=== PATIENT | female | born 1970 | race Caucasian/White ===

== ENCOUNTER 2016-10-25 17:34 | Emergency (ER) | payer OTHER ==
[~2016-10-25] VITALS: Ht 152.4 cm; Wt 68.0 kg
[~2016-10-25 17:34] MED LIST: CITA10TA4 PO; FERR325T58 PO; TRAM50TA PO
[2016-10-25 20:35] VITALS: BP 145/93
[2016-10-25 21:00] LABS: BILIRUBIN,URINE NEGATIVE (NEG); GLUCOSE,URINE NEGATIVE (NEG); NITRITE,URINE NEGATIVE (NEG); PROTEIN,URINE NEGATIVE (NEG-TRACE); UROBILINOGEN,URINE 0.2 mg/dL (0.2 mg/dL)
[2016-10-25 21:14] LABS: BACTERIA,URINE 0 /HPF (0-FEW); RBC,URINE OCC /HPF (0-2); SQUAMOUS EPITHELIAL CELL,UR OCC /LPF; WBC,URINE OCC /HPF (0-4)
--- NOTE | 2016-10-25 21:21 | PHYS DOC ---
Past Medical History Past Medical History: Anxiety, Hypertension, Sinusitis Additional Past Medical Histor: RLS Past Surgical History: Hysterectomy, Tubal ligation, Other Additional Past Surgical Histo: RIGHT ORTHOSCOPIC KNEE, HTN W , R bunionectomy Alcohol Use: Rarely Drug Use: None Adult General Chief Complaint Chief Complaint: SYNCOPE HPI HPI Patient is a 46 year old female who presents with complaint of syncopal episode. 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 The patient states that this is the second episode that she has had in the last month. Patient states that she has also been dealing with lower abdominal pain which has been present for the past month. Patient has had associated nausea and increasing fatigue. Patient denies any fever or bloody stools. Patient did not have any associated chest pain or shortness of breath with her syncopal episode. Patient states that she feels rundown and does not feel like herself. Patient states that she does get lightheaded when she changes positions too quickly. Patient states that her lower abdominal pain as 8 out of 10. Patient describes it as sharp. Review of Systems Review of Systems Constitutional: Fatigue, Denies fever or chills [] Eyes: Denies change in visual acuity, redness, or eye pain [] HENT: Denies nasal congestion or sore throat [] Respiratory: Denies cough or shortness of breath [] Cardiovascular: Syncope, denies chest pain or edema [] GI: Abdominal pain, nausea, denies vomiting, bloody stools or diarrhea [] : Denies dysuria or hematuria [] Musculoskeletal: Denies back pain or joint pain [] Integument: Denies rash or skin lesions [] Neurologic: Denies headache, focal weakness or sensory changes [] Current Medications Current Medications Current Medications Medications (Trade) Dose Ordered Sig/Spencer Start Time Stop Time Status Last Admin Dose Admin Acetaminophen/ Hydrocodone Bitart 1 tab 1 tab 1X ONCE 10/25/16 23:00 10/25/16 23:01 DC 10/25/16 23:03 1 TAB Info (Do NOT chart on this entry -- for MONITORING) 1 each PRN DAILY PRN 10/25/16 22:00 10/27/16 21:59 Iohexol (Omnipaque 300 Mg/ml) 75 ml 1X ONCE 10/25/16 22:00 10/25/16 22:01 DC 10/25/16 22:19 75 ML Sodium Chloride (Iv Sodium Chloride 0.9% 500ml Bag) 500 ml @ 500 mls/hr 1X ONCE 10/25/16 23:00 10/25/16 23:59 10/25/16 23:03 500 MLS/HR Allergies Allergies Allergies Coded Allergies Type Severity Reaction Last Updated Verified gabapentin Adverse Reaction Intermediate Swelling 05/02/15 Yes Physical Exam Physical Exam Constitutional: Alert, afebrile, no acute distress. [] HENT: Normocephalic, atraumatic, bilateral external ears normal, oropharynx moist, no oral exudates, nose normal. [] Eyes: PERRLA, EOMI, conjunctiva normal, no discharge. [] Neck: Normal range of motion, no tenderness, supple, no stridor. [] Cardiovascular: Tachycardia, regular rhythm no murmur [] Lungs & Thorax: Bilateral breath sounds clear to auscultation [] Abdomen: Bowel sounds normal, soft, suprapubic and bilateral lower abdominal tenderness to palpation, no masses, no pulsatile masses. [] Skin: Warm, dry, no erythema, no rash. [] Back: No tenderness, no CVA tenderness. [] Extremities: No tenderness, no cyanosis, no clubbing, ROM intact, no edema. [] Neurologic: Alert and oriented X 3, normal motor function, normal sensory function, no focal deficits noted. [] Current Patient Data Vital Signs Vital Signs Date Time Temp Pulse Resp B/P Pulse Ox O2 Delivery O2 Flow Rate FiO2 10/25/16 23:03 Room Air 10/25/16 20:35 98.2 96 16 145/93 98 98.2 Lab Values Laboratory Tests Test 10/25/16 20:30 10/25/16 21:21 Urine Color Yellow Urine Clarity Clear Urine pH 6.0 Urine Specific [place] 1.025 Urine Protein Negativemg/dL (NEG-TRACE) Urine Glucose (UA) Negativemg/dL (NEG) Urine Ketones (Stick) Negativemg/dL (NEG) Urine Blood Negative (NEG) Urine Nitrite Negative (NEG) Urine Bilirubin Negative (NEG) Urine Urobilinogen Dipstick 0.2mg/dL (0.2 mg/dL) Urine Leukocyte Esterase Negative (NEG) Urine RBC Occ/HPF (0-2) Urine WBC Occ/HPF (0-4) Urine Squamous Epithelial Cells Occ/LPF Urine Bacteria 0/HPF (0-FEW) Urine Mucus Slight/LPF White Blood Count 5.4x10^3/uL (4.0-11.0) Red Blood Count 4.39x10^6/uL (3.50-5.40) Hemoglobin 13.2g/dL (12.0-15.5) Hematocrit 38.7% (36.0-47.0) Mean Corpuscular Volume 88fL (79-100) Mean Corpuscular Hemoglobin 30pg (25-35) Mean Corpuscular Hemoglobin Concent 34g/dL (31-37) Red Cell Distribution Width 13.0% (11.5-14.5) Platelet Count 238x10^3/uL (140-400) Neutrophils (%) (Auto) 57% (31-73) Lymphocytes (%) (Auto) 31% (24-48) Monocytes (%) (Auto) 9% (0-9) Eosinophils (%) (Auto) 2% (0-3) Basophils (%) (Auto) 1% (0-3) Neutrophils # (Auto) 3.1x10^3uL (1.8-7.7) Lymphocytes # (Auto) 1.7x10^3/uL (1.0-4.8) Monocytes # (Auto) 0.5x10^3/uL (0.0-1.1) Eosinophils # (Auto) 0.1x10^3/uL (0.0-0.7) Basophils # (Auto) 0.0x10^3/uL (0.0-0.2) Sodium Level 140mmol/L (136-145) Potassium Level 3.6mmol/L (3.5-5.1) Chloride Level 104mmol/L (98-107) Carbon Dioxide Level 27mmol/L (21-32) Anion Gap 9 (6-14) Blood Urea Nitrogen 15mg/dL (7-20) Creatinine 0.7mg/dL (0.6-1.0) Estimated GFR (Cockcroft-Gault) 90.5 BUN/Creatinine Ratio 21 (6-20) H Glucose Level 133mg/dL (70-99) H Calcium Level 9.1mg/dL (8.5-10.1) Total Bilirubin 0.2mg/dL (0.2-1.0) Aspartate Amino Transferase (AST) 16U/L (15-37) Alanine Aminotransferase (ALT) 29U/L (14-59) Alkaline Phosphatase 127U/L (46-116) H Troponin I Quantitative < 0.017ng/mL (0.000-0.055) Total Protein 7.3g/dL (6.4-8.2) Albumin 3.6g/dL (3.4-5.0) Albumin/Globulin Ratio 1.0 (1.0-1.7) Laboratory Tests 10/25/16 21:21 Laboratory Tests 10/25/16 21:21 EKG EKG Interpreted by me: Heart rate 90, sinus rhythm, normal intervals, normal axis, no acute ST/T-wave abnormalities present [] Radiology/Procedures Radiology/Procedures One view AP chest x-ray interpreted by me: No infiltrate, no effusion, normal cardiac silhouette [facility] [address] [place] [address] IMAGING REPORT Signed PATIENT: JAZMIN MARKS ACCOUNT: [id number] : 1970 LOCATION: ER AGE: 46 SEX: F EXAM STATUS: REG ER ORD. PHYSICIAN: ALIX WINTER MD REASON: syncope, lower abdominal pain PROCEDURE: ABD PELV W/ IV CONTRAST ONLY PROCEDURE CT of the abdomen and pelvis with contrast HISTORY Lower abdominal pain TECHNIQUE After IV infusion of95 cc of Optiray-320, helical CT scanning of the abdomen and pelvis was performed.GI contrast was not administered. COMPARISON September 21, 2015 FINDINGS The liveer is homogeous in appearance and normal in size. The spleen is unremarkable and normal in size. The pancreas is homogeneous in appearance and no focal enlargement is seen. The gallbladder appears normal and no intra or extrahepatic biliary ductal dilatation is seen. No focal aneurysmal dilatation of the abdominal aorta is seen. No enlarged abdominal or pelvic lymphadenopathy is seen. No soft tissue mass is seen. No obstructive bowel pattern or bowel wall thickening or inflammatory change is seen. No free intraperitoneal fluid or abscess or free intraperitoneal air is seen. The lung bases are clear. Both kidneys are functioning and no hydronephrosis or renal mass or perinephric fluid collection is seen. The urinary bladder wall is smooth. No adrenal masses are seen. No osteolytic process is seen. The appendix is normal. IMPRESSION No significant CT abnormality of the abdomen or the pelvis is seen. Electronically signed by: Juan Ramon Garcia MD (Oct 25, 2016 23:05:58) DICTATED and SIGNED BY: JUAN RAMON GARCIA III, MD DATE: 10/25/16 4437 CC: ALIX WINTER MD; DANNY HINKLE MD ~ [] Course & Med Decision Making Course & Med Decision Making Pertinent Labs and Imaging studies reviewed. (See chart for details) Patient was given [place] and IV fluids in the emergency department. On reevaluation, patient states her symptoms have improved at this time. The patient's workup was unremarkable for any acute or surgical pathology. The etiology of patient's pain remains somewhat unclear at this time though it does not appear to be life-threatening. Spoke with the patient regarding need for follow-up with her primary doctor in the next 2 days. I also recommended that the patient follow-up with cardiology within the next week due to having a possible syncopal episode. Patient states that she has followed with a gis geographer at [facility] and plans on calling their office tomorrow to schedule follow-up. Advised return emergency department for any worsening symptoms. Patient was understanding and in agreement with treatment plan. Dragon Disclaimer Dragon Disclaimer This electronic medical record was generated, in whole or in part, using a voice recognition dictation system. Departure Departure Impression: Primary Impression: Abdominal pain Additional Impression: Syncope Disposition: 01 HOME, SELF-CARE Condition: IMPROVED Referrals: DANNY HINKLE MD (PCP) Patient Instructions: Abdominal Pain (Nonspecific), Syncope Additional Instructions: Follow-up with Dr. Hinkle in the next 2 days. It is also recommended that you follow-up with your gis geographer in the next 5-7 days. Return to the emergency department for any worsening symptoms. Problem Qualifiers Primary Impression: Abdominal pain Abdominal location: lower abdomen, unspecified Qualified Code: R10.30 - Lower abdominal pain, unspecified Additional Impression: Syncope Syncope type: unspecified Qualified Code: R55 - Syncope and collapse ALIX WINTER MD Oct 25, 2016 21:21
[2016-10-25 21:42] LABS: BASO % 1 % (0-3); EOS % 2 % (0-3); HEMATOCRIT 38.7 % (36.0-47.0); HEMOGLOBIN 13.2 g/dL (12.0-15.5); LYMPH # 1.7 x10^3/uL (1.0-4.8); LYMPH % 31 % (24-48); MEAN CORPUSCULAR HEMOGLOBIN 30 pg (25-35); MEAN CORPUSCULAR HGB CONC 34 g/dL (31-37); MEAN CORPUSCULAR VOLUME 88 fL (79-100); MONO % 9 % (0-9); NEUT % 57 % (31-73); PLATELET COUNT 238 x10^3/uL (140-400); RED BLOOD COUNT 4.39 x10^6/uL (3.50-5.40); WHITE BLOOD COUNT 5.4 x10^3/uL (4.0-11.0)
[2016-10-25 21:54] LABS: CALCIUM 9.1 mg/dL (8.5-10.1); CREATININE 0.7 mg/dL (0.6-1.0); GFR 90.5; POTASSIUM 3.6 mmol/L (3.5-5.1)
[2016-10-25 22:00] LABS: ALBUMIN 3.6 g/dL (3.4-5.0); TOTAL BILIRUBIN 0.2 mg/dL (0.2-1.0); TOTAL PROTEIN 7.3 g/dL (6.4-8.2)
[2016-10-25] MEDS ORDERED: CONTRAST GIVEN MC PRN (22:00)
[2016-10-25] MEDS ORDERED: IOHEXOL 300 MG/ML 75 ML VIAL IV ONE (22:00)
[2016-10-25] MEDS ORDERED: IV NORMAL SALINE 500ML BAG 500 ML IV ONE (23:00)
[2016-10-25] MEDS ORDERED: HYDROCODONE/APAP 5/325MG TABLET. PO ONE (23:00)
--- NOTE | 2016-10-25 23:06 | RAD ---
PROCEDURE CT of the abdomen and pelvis with contrast HISTORY Lower abdominal pain TECHNIQUE After IV infusion of95 cc of Optiray-320, helical CT scanning of the abdomen and pelvis was performed.GI contrast was not administered. COMPARISON September 21, 2015 FINDINGS The liveer is homogeous in appearance and normal in size. The spleen is unremarkable and normal in size. The pancreas is homogeneous in appearance and no focal enlargement is seen. The gallbladder appears normal and no intra or extrahepatic biliary ductal dilatation is seen. No focal aneurysmal dilatation of the abdominal aorta is seen. No enlarged abdominal or pelvic lymphadenopathy is seen. No soft tissue mass is seen. No obstructive bowel pattern or bowel wall thickening or inflammatory change is seen. No free intraperitoneal fluid or abscess or free intraperitoneal air is seen. The lung bases are clear. Both kidneys are functioning and no hydronephrosis or renal mass or perinephric fluid collection is seen. The urinary bladder wall is smooth. No adrenal masses are seen. No osteolytic process is seen. The appendix is normal. IMPRESSION No significant CT abnormality of the abdomen or the pelvis is seen. Electronically signed by: Adonis Infante MD (Oct 25, 2016 23:05:58)
--- NOTE | 2016-10-26 06:41 | EKG ---
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
--- NOTE | 2016-10-26 09:06 | RAD ---
EXAM: Chest one view. HISTORY: Syncope. COMPARISON: 10/01/2014. FINDINGS: A frontal view of the chest is obtained. There are no confluent infiltrates. There is no pneumothorax or pleural effusion. The heart is not enlarged. IMPRESSION: 1. No confluent infiltrates.
== END 2016-10-26 00:35 | disposition home or self-care (01) ==
LOC: ER 17:34
DX: R55 Syncope and collapse (principal); R10.30 Lower abdominal pain, unspecified; R00.0 Tachycardia, unspecified; R10.814 Left lower quadrant abdominal tenderness; R10.813 Right lower quadrant abdominal tenderness; R11.0 Nausea; R53.83 Other fatigue; I10 Essential (primary) hypertension; F41.9 Anxiety disorder, unspecified; Z88.8 Allergy status to other drugs, medicaments and biological substances; Z90.710 Acquired absence of both cervix and uterus
CPT/HCPCS: 36415; 71010; 74177; 80053; 81001; 84484; 85027; 93005; 96360; 99285; J7040; Q9967

== ENCOUNTER → 2017-07-15 | Outpatient (CLI) | payer OTHER ==
--- NOTE | 2017-07-15 16:09 | RAD ---
DATE: 07/15/2017. EXAM: DIGITAL SCREEN BILAT W/CAD. HISTORY: Routine mammographic screening. COMPARISON: 08/20/2014, 07/15/2015. This study was interpreted with the benefit of Computerized Aided Detection (CAD). FINDINGS: The breast parenchyma is heterogeneously dense, which could reduce sensitivity of mammography. Breast parenchyma level C.. There are no suspicious masses, microcalcifications or architectural distortion. A few scattered calcifications are benign. Parenchymal density has decreased. BI-RADS CATEGORY: 2 BENIGN FINDING(S). RECOMMENDED FOLLOW-UP: 12M 12 MONTH FOLLOW-UP. PQRS compliance statement: Patient information was entered into a reminder system with a target due date 07/15/2018 for the next mammogram. Mammography is a sensitive method for finding small breast cancers, but it does not detect them all and is not a substitute for careful clinical examination. A negative mammogram does not negate a clinically suspicious finding and should not result in delay in biopsying a clinically suspicious abnormality. "Our facility is accredited by the [employer] Mammography Program."
== END | disposition home or self-care (01) ==
LOC: MAMMO 14:11
PROVIDERS: ATTEND Physician Assistant Medical
DX: Z12.31 Encounter for screening mammogram for malignant neoplasm of breast (principal)
CPT/HCPCS: G0202; 77067

== ENCOUNTER 2017-08-16 12:33 | Emergency (ER) | payer OTHER ==
[~2017-08-16] VITALS: Ht 152.4 cm; Wt 66.2 kg
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
[2017-08-16] MEDS ORDERED: ACETAMINOPHEN 500 MG TABLET PO ONE (13:45)
[2017-08-16 14:19] VITALS: BP 132/77
== END 2017-08-16 14:10 | disposition home or self-care (01) ==
LOC: ER 12:33
DX: S06.0X9A Concussion with loss of consciousness of unspecified duration, initial encounter (principal); S10.93XA Contusion of unspecified part of neck, initial encounter; F41.9 Anxiety disorder, unspecified; I10 Essential (primary) hypertension; G25.81 Restless legs syndrome; Z90.710 Acquired absence of both cervix and uterus; Z88.8 Allergy status to other drugs, medicaments and biological substances; Y08.89XA Assault by other specified means, initial encounter; Y93.89 Activity, other specified; Y92.89 Other specified places as the place of occurrence of the external cause; Y99.8 Other external cause status
CPT/HCPCS: 70450; 71010; 72125; 99284-25

== ENCOUNTER 2018-02-06 22:33 | Emergency (ER) | payer OTHER ==
[2018-02-06] MEDS ORDERED: ONDANSETRON ODT 4 MG TAB.RAPDIS. (23:18)
[2018-02-06] MEDS ORDERED: MORPHINE SULFATE 10 MG/ML VIAL. (23:18)
[2018-02-06] MEDS ORDERED: ONDANSETRON ODT 4 MG TAB.RAPDIS. PO (23:30)
[2018-02-06] MEDS ORDERED: MORPHINE SULFATE 10 MG/ML VIAL. IV (23:30)
[2018-02-07] MEDS: oxyCODONE/APAP 7.5/325 1 TAB TABLET PO (00:30)
== END 2018-02-07 01:45 | disposition home or self-care (01) ==
LOC: ER 02-07 01:45
DX: S33.5XXA Sprain of ligaments of lumbar spine, initial encounter (principal); S13.4XXA Sprain of ligaments of cervical spine, initial encounter; M25.561 Pain in right knee; I10 Essential (primary) hypertension; G89.29 Other chronic pain; G25.81 Restless legs syndrome; Z88.8 Allergy status to other drugs, medicaments and biological substances; W01.10XA Fall on same level from slipping, tripping and stumbling with subsequent striking against unspecified object, initial encounter; Y93.89 Activity, other specified; Y99.8 Other external cause status; Y92.89 Other specified places as the place of occurrence of the external cause
CPT/HCPCS: 72125; 72131; 99284-25

== ENCOUNTER 2018-02-21 06:31 | Emergency (ER) | payer OTHER ==
[2018-02-21] MEDS: HYDROcodone/APAP 5/325MG 1 TAB TABLET PO (07:55)
== END 2018-02-21 08:46 | disposition home or self-care (01) ==
LOC: ER 06:31
DX: M79.604 Pain in right leg (principal); I10 Essential (primary) hypertension; Z90.710 Acquired absence of both cervix and uterus; Z79.891 Long term (current) use of opiate analgesic; Z88.8 Allergy status to other drugs, medicaments and biological substances
CPT/HCPCS: 72220; 73502; 73562; 73610; 93971; 99284

== ENCOUNTER → 2018-05-25 | Outpatient (CLI) | payer OTHER ==
[2018-02-21 07:00] VITALS: BP 140/97
[~2018-05-25] MED LIST changes: +CYCL10TA2 PO; +CYCL5TAB PO; +HYDR-2758 PO; +IBUP800T19 PO
--- NOTE | 2018-05-25 16:51 | KCIC ---
EXAM: MRI RIGHT KNEE DATE: 05/25/2018 3:30 PM CLINICAL INDICATION: Right knee pain, history of fall. COMPARISON: Radiograph 02/21/2018 TECHNIQUE: Multiplanar multisequence MR imaging of the right knee was performed without IV contrast. FINDINGS: There is a moderate right knee joint effusion. Small Nelson's cyst. There is a full-thickness tear of the ACL. Anterior translation of the tibia relative to the femur measures approximately 8 mm. Mild edema is seen at the posterior aspect of the lateral tibial plateau. The PCL is intact. Mild increased signal about the MCL possibly low-grade sprain or reactive from adjacent meniscal tear. The fibular collateral ligament, biceps femoris, IT band are intact. The popliteus is normal in signal and morphology also intact. Extensor mechanism is intact. Neutral patellar tracking. Medial meniscus: There is a full-thickness radial tear at the posterior horn root junction with associated extrusion of the body segment approximately 6 mm. Lateral meniscus: No definite lateral meniscal tear is seen. No evidence of fracture or osteonecrosis. IMPRESSION: 1. Full-thickness tear of the ACL. 2. Moderate right knee joint effusion. Small Nelsno's cyst. 3. Full-thickness radial tear at the posterior horn root junction of the medial meniscus with extrusion of the body segment. 4. No definite lateral meniscal tear is identified. Electronically signed by: Terry Montalvo MD (05/25/2018 4:48 PM) [facility]
== END | disposition home or self-care (01) ==
LOC: KCIC MRI 14:49
PROVIDERS: ATTEND Orthopaedic Surgery Sports Medicine
DX: S83.511A Sprain of anterior cruciate ligament of right knee, initial encounter (principal); M71.21 Synovial cyst of popliteal space [Baker], right knee; M25.461 Effusion, right knee; X58.XXXA Exposure to other specified factors, initial encounter; Y93.89 Activity, other specified; Y92.89 Other specified places as the place of occurrence of the external cause; Y99.8 Other external cause status
CPT/HCPCS: 73721

== ENCOUNTER 2020-03-22 22:35 | Emergency (ER) | payer OTHER ==
[~2020-03-22] VITALS: Ht 152.4 cm; Wt 68.1 kg
[~2020-03-22 22:35] MED LIST changes: -HYDR-2758 PO; +HYDR-2761 PO
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
[2020-03-22] MEDS ORDERED: HYDR-3164 PO (23:18)
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
[2020-03-22] MEDS ORDERED: HYDROcodone/APAP 5/325MG 1 TAB TABLET PO ONE (23:30)
[2020-03-22] MEDS ORDERED: ONDANSETRON ODT 4 MG TAB.RAPDIS. PO ONE (23:30)
[2020-03-23 00:13] VITALS: BP 99/64
[2020-03-23] MEDS ORDERED: oxyCODONE IR 5 MG TABLET PO ONE (01:00)
[2020-03-25] MEDS ORDERED: FLUO20CA20 PO (11:14)
[2020-03-25] MEDS ORDERED: LISI10TA2 PO (11:14)
[2020-03-25] MEDS ORDERED: MULT1CAP15 PO (11:15)
[2020-03-25] MEDS ORDERED: PANT40TA77 PO (11:15)
[2020-03-25] MEDS ORDERED: CYAN25008 PO (11:16)
[2020-03-25] MEDS ORDERED: LACT1CAP6 PO (11:17)
[2020-03-25] MEDS ORDERED: vitamin d3 PO (11:17)
== END 2020-03-23 00:55 | disposition home or self-care (01) ==
LOC: EEVIPCON 22:35 → ER 22:35
DX: S52.502A Unspecified fracture of the lower end of left radius, initial encounter for closed fracture (principal); S52.612A Displaced fracture of left ulna styloid process, initial encounter for closed fracture; I10 Essential (primary) hypertension; Z88.8 Allergy status to other drugs, medicaments and biological substances; Y04.0XXA Assault by unarmed brawl or fight, initial encounter; Y93.89 Activity, other specified; Y92.89 Other specified places as the place of occurrence of the external cause; Y99.8 Other external cause status
CPT/HCPCS: 29125; 73100; 73120; 99285-25

== ENCOUNTER 2020-03-28 11:07 | Day surgery (SDC) | payer OTHER ==
[~2020-03-28] VITALS: Ht 152.4 cm; Wt 70.3 kg
[~2020-03-28 11:07] MED LIST changes: +CYAN25008 PO; +DEXAMETHASONE SOD PHOS 4 MG/ML VIAL ONE; +FLUO20CA20 PO; +HYDR-3164 PO; +HYDROmorphone 2 MG/ML VIAL IV PRN; +IV RINGERS,LACTATED 1000ML 1,000 ML IV SCH; +LACT1CAP6 PO; +LIDOCAINE 1% PF 2 ML VIAL. ID PRN; +LIDOCAINE 2% PF 5 ML VIAL. ONE; +LISI10TA2 PO; +MIDAZOLAM HCL/PF 2 MG/2 ML VIAL. ONE; +MULT1CAP15 PO; +ONDANSETRON PF 4 MG/2 ML VIAL. IV PRN; +ONDANSETRON PF 4 MG/2 ML VIAL. ONE; +PANT40TA77 PO; +PROCHLORPERAZINE 10 MG/2 ML VIAL. IV PRN; +PROPOFOL 10 MG/ML (20ML) VIAL. IV ONE; +fentaNYL PF VIAL 100 MCG/2 ML VIAL IV PRN; +fentaNYL PF VIAL 100 MCG/2 ML VIAL ONE; +vitamin d3 PO
[2020-03-28 11:51] LABS: BASO % 1 % (0-3); EOS # 0.1 x10^3/uL (0.0-0.7); EOS % 2 % (0-3); HEMATOCRIT 37.8 % (36.0-47.0); HEMOGLOBIN 13.5 g/dL (12.0-15.5); LYMPH # 1.2 x10^3/uL (1.0-4.8); LYMPH % 29 % (24-48); MEAN CORPUSCULAR HEMOGLOBIN 32 pg (25-35); MEAN CORPUSCULAR HGB CONC 36 g/dL (31-37); MEAN CORPUSCULAR VOLUME 89 fL (79-100); MONO # 0.3 x10^3/uL (0.0-1.1); MONO % 8 % (0-9); NEUT # 2.4 x10^3/uL (1.8-7.7); NEUT % 60 % (31-73); PLATELET COUNT 246 x10^3/uL (140-400); RED BLOOD COUNT 4.24 x10^6/uL (3.50-5.40); WHITE BLOOD COUNT 4.1 x10^3/uL (4.0-11.0)
[2020-03-28 11:58] LABS: CALCIUM 9.6 mg/dL (8.5-10.1); CREATININE 0.8 mg/dL (0.6-1.0); GFR 76.6
[2020-03-28] MEDS ORDERED: PHENYLEPHRINE in 0.9% NACL PF 1 MG/10 ML SYRINGE. IV ONE (12:55)
[2020-03-28] MEDS ORDERED: ePHEDrine PF IN SALINE 50 MG/10 ML SYRINGE. IV ONE (12:55)
[2020-03-28] MEDS ORDERED: KETOROLAC 30 MG/ML VIAL. ONE (13:51)
[2020-03-28] MEDS ORDERED: SEVOFLURANE 31 TO 60 MINUTES. IH ONE (13:51)
[2020-03-28] MEDS ORDERED: BUPIVACAINE MPF 0.5% 30 ML VIAL. ONE (13:58)
[2020-03-28] MEDS ORDERED: ceFAZolin 2GM PREMIX 2 GM/50 ML BAG IV ONE (14:00)
[2020-03-28] MEDS ORDERED: MORPHINE SULFATE 2 MG/ML VIAL. ONE ×2 (14:14→14:58)
[2020-03-28] MEDS: MORPHINE SULFATE 2 MG/ML VIAL. IV PRN ×2 (14:18→14:31)
[2020-03-28] MEDS ORDERED: fentaNYL PF VIAL 100 MCG/2 ML VIAL ONE (14:27)
[2020-03-28] MEDS: fentaNYL PF VIAL 100 MCG/2 ML VIAL IV PRN ×2 (14:30→14:46)
[2020-03-28] MEDS ORDERED: OXYC-325 PO (14:46)
--- NOTE | 2020-03-28 14:47 | DISCH ---
DISCHARGE INSTRUCTIONS Condition on Discharge Condition on Discharge: Stable Activity After Discharge Activity Instructions for Disc: Other, see below (No hard grasp, fine motor use of fingers and hand only) Weight Bearing Status after Di: Partial weight bearing Diet after Discharge Diet after Discharge: Regular Diet Texture: Regular Liquid Texture: Thin Liquid Swallowing Supervision: None needed Wound Incision Care Wound/Incision Care: Do not change dressing Contacting the after DC Call your doctor for: Concerns you may have Follow-Up Follow up with: Dr. De La Torre 10 days Treatment/Equipment after DC Adaptive Equipment Issued: None MOISES DE LA TORRE MD Mar 28, 2020 14:47
[2020-03-28 15:00] VITALS: BP 150/86
[2020-03-28] MEDS ORDERED: MORPHINE SULFATE 2 MG/ML VIAL. IV PRN (15:00)
[2020-03-28] MEDS ORDERED: oxyCODONE/APAP 5/325 1 TAB TABLET PO ONE ×2 (15:30)
--- NOTE | 2020-03-28 21:33 | PDOC4 ---
Operative Note Operative Note Date of surgery: 03/28/2020 Preoperative diagnosis: Left extra-articular distal radius fracture with significant dorsal comminution Postoperative diagnosis: Same Operative procedure: Operative reduction internal fixation left extra-articular distal radius fracture with volar plate and screw fixation Surgeon: Wil Anesthesia: General Estimated blood loss: 10 cc Complications: None Operative indications: Please see my orthopedic clinic note for detailed operative indications Operative text: Patient was identified procedure verified patient placed in the supine position on the operating table. After adequate amounts of general anesthesia were administered the left upper extremity was prepped and draped in standard sterile fashion with an upper arm tourniquet and after timeout was performed patient procedure identified and verified the left upper extremity was exsanguinated by Esmarch bandage tourniquet inflated to 250 mmHg. A standard volar Scott approach was carried out to the distal radius subperiosteal dissection was carried out and a standard narrow Jonathan DVR distal radius plate was selected and after reduction was carried out under fluoroscopic guidance plate was preliminary placed with a nonlocking screw in the sliding shaft portion of the plate and then adjusted terminal position. Distal locking screws were placed first on its radial aspect and noted excellent placement. I was unhappy with placement of the ulnarly placed distal screws and therefore directed a multidirectional locking screw in the 2 ulnarly placed most holes and also in the ulnarly directed proximal holes to avoid any possible joint impingement. Satisfactory reduction and hardware placement were checked under multiple fluoroscopic views. Thorough irrigation carried out normal saline solution subcutaneous closure accomplished with buried Vicryl suture subcuticular closure with 4-0 Monocryl Steri-Strips and Mastisol a total of 24 cc half percent plain Marcaine were injected subcutaneously and sterile soft dressings were placed with a well-padded 3 inch Ortho-Glass splint and Jose wrap. Fingers were noted be warm pink following deflation of the tourniquet and patient was returned to recovery room in stable condition having tolerated procedure well MOISES SAWANT MD Mar 28, 2020 21:33
== END 2020-03-28 15:53 | disposition home or self-care (01) ==
LOC: SURG 11:07
PROVIDERS: ATTEND Orthopaedic Surgery
DX: S52.522A Torus fracture of lower end of left radius, initial encounter for closed fracture (principal); X58.XXXA Exposure to other specified factors, initial encounter; Y93.89 Activity, other specified; Y92.89 Other specified places as the place of occurrence of the external cause; Y99.8 Other external cause status
CPT/HCPCS: 25607; 36415; 76000; 80048; 85025; A7015; C1713; J0690; J1100; J1885; J2250; J2270; J2370; J2405; J2704; J3010; J3490; J0780; A4565

== ENCOUNTER 2020-04-03 20:10 | Emergency (ER) | payer OTHER ==
[~2020-04-03] VITALS: Ht 152.4 cm; Wt 64.1 kg
[~2020-04-03 20:10] MED LIST changes: -DEXAMETHASONE SOD PHOS 4 MG/ML VIAL ONE; -HYDROmorphone 2 MG/ML VIAL IV PRN; -IV RINGERS,LACTATED 1000ML 1,000 ML IV SCH; -LIDOCAINE 1% PF 2 ML VIAL. ID PRN; -LIDOCAINE 2% PF 5 ML VIAL. ONE; -MIDAZOLAM HCL/PF 2 MG/2 ML VIAL. ONE; -ONDANSETRON PF 4 MG/2 ML VIAL. IV PRN; -ONDANSETRON PF 4 MG/2 ML VIAL. ONE; +OXYC-325 PO; -PROCHLORPERAZINE 10 MG/2 ML VIAL. IV PRN; -PROPOFOL 10 MG/ML (20ML) VIAL. IV ONE; -fentaNYL PF VIAL 100 MCG/2 ML VIAL IV PRN; -fentaNYL PF VIAL 100 MCG/2 ML VIAL ONE
[2020-04-03] MEDS ORDERED: ORPHENADRINE CITRATE 60 MG/2 ML VIAL. IM ONE (21:30)
[2020-04-03] MEDS ORDERED: MORPHINE SULFATE 2 MG/ML VIAL. IM ONE (21:30)
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
--- NOTE | 2020-04-03 21:59 | RAD ---
EXAM: 3 views left elbow AP and lateral views left forearm PA, oblique and lateral views left wrist DATE: 04/03/2020 9:15 PM INDICATION: Reason: post op pain on wrist, Knee pain, no injury / Spl. Instructions: / History: COMPARISON: No Prior FINDINGS/ IMPRESSION: 1. No left elbow joint effusion. No acute fracture or dislocation at the elbow. Joint spaces are grossly preserved. 2. Distal radial fracture post reduction and volar screw plate fixation, in good alignment without definite hardware complication. 3. Ulnar styloid avulsion fracture is essentially nondisplaced. 4. Overlying splint obscures fine bony detail. Electronically signed by: Terry Montalvo MD (04/03/2020 9:55 PM) [facility]
--- NOTE | 2020-04-03 22:00 | RAD ---
EXAM: 1. AP, oblique and lateral views right knee 2. AP and lateral views right lower leg DATE: 04/03/2020 9:15 PM INDICATION: Reason: post op pain on wrist, Knee pain, no injury / Spl. Instructions: / History: COMPARISON: No Prior FINDINGS: Right knee: Mild medial compartment joint space narrowing. Chondrocalcinosis. Moderate right knee joint effusion. Changes of ACL reconstruction are seen. No acute fracture or dislocation. Right tibia/fibula: No definite fracture or dislocation of the tibia/fibula IMPRESSION: 1. No acute fracture or dislocation of the right knee or right tibia/fibula 2. Degenerative changes at the right knee with associated chondrocalcinosis suggesting component of CPPD arthropathy. 3. Moderate right knee joint effusion. Electronically signed by: Terry Montalvo MD (04/03/2020 9:57 PM) [facility]
[2020-04-03] MEDS ORDERED: DICL50TA4 PO (22:12)
[2020-04-03] MEDS ORDERED: ORPH100T PO (22:13)
[2020-04-03 22:46] VITALS: BP 129/90
== END 2020-04-03 22:46 | disposition home or self-care (01) ==
LOC: ER 20:10
DX: M79.622 Pain in left upper arm (principal); M25.461 Effusion, right knee; M79.605 Pain in left leg; G89.18 Other acute postprocedural pain; M25.532 Pain in left wrist; M25.522 Pain in left elbow; I10 Essential (primary) hypertension; Z88.8 Allergy status to other drugs, medicaments and biological substances
CPT/HCPCS: 73080; 73090; 73110; 73564; 73590; 96372; 99284; J2270; J2360

== ENCOUNTER 2020-08-09 06:34 | Emergency (ER) | payer OTHER ==
[~2020-08-09] VITALS: Ht 152.4 cm; Wt 64.1 kg
[~2020-08-09 06:34] MED LIST changes: +DICL50TA4 PO; +ORPH100T PO
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
[2020-08-09 07:24] LABS: BASO % 1 % (0-3); EOS % 1 % (0-3); HEMATOCRIT 36.8 % (36.0-47.0); HEMOGLOBIN 12.6 g/dL (12.0-15.5); LYMPH # 1.3 x10^3/uL (1.0-4.8); LYMPH % 31 % (24-48); MEAN CORPUSCULAR HEMOGLOBIN 31 pg (25-35); MEAN CORPUSCULAR HGB CONC 34 g/dL (31-37); MEAN CORPUSCULAR VOLUME 90 fL (79-100); MONO # 0.4 x10^3/uL (0.0-1.1); MONO % 8 % (0-9); NEUT # 2.6 x10^3/uL (1.8-7.7); NEUT % 59 % (31-73); PLATELET COUNT 245 x10^3/uL (140-400); RED BLOOD COUNT 4.11 x10^6/uL (3.50-5.40); RED CELL DISTRIBUTION WIDTH 13.2 % (11.5-14.5); WHITE BLOOD COUNT 4.3 x10^3/uL (4.0-11.0)
[2020-08-09 07:30] VITALS: BP 92/60
[2020-08-09 07:34] LABS: CALCIUM 8.5 mg/dL (8.5-10.1); CREATININE 0.7 mg/dL (0.6-1.0); GFR 88.9; POTASSIUM 3.4 mmol/L (3.5-5.1)
[2020-08-09 07:40] LABS: ALBUMIN 3.9 g/dL (3.4-5.0); ALBUMIN/GLOBULIN RATIO 1.1 (1.0-1.7); TOTAL BILIRUBIN 0.1 mg/dL (0.2-1.0); TOTAL PROTEIN 7.3 g/dL (6.4-8.2)
[2020-08-09 07:41] LABS: ACETAMIN < 2 mcg/ml (10-30); SALIC < 2.8 mg/dL (2.8-20.0)
[2020-08-09 07:43] LABS: ETHANOL 252 mg/dL (0-10)
[2020-08-09 07:49] LABS: BILIRUBIN,URINE NEGATIVE (NEG); CLARITY,URINE CLEAR; COLOR,URINE YELLOW; NITRITE,URINE NEGATIVE (NEG); PH,URINE 6.5 (<5.0-8.0); PROTEIN,URINE NEGATIVE (NEG-TRACE); UROBILINOGEN,URINE 0.2 mg/dL (0.2 mg/dL)
[2020-08-09 07:55] LABS: BARBITURATES NEG (NEG); BENZODIAZEPINES NEG (NEG); CANNABINOIDS NEG (NEG); COCAINE NEG (NEG); METHADONE NEG (NEG); OPIATES NEG (NEG); PHENCYCLIDINE NEG (NEG)
[2020-08-09 07:57] LABS: AMPHETAMINE/METHAMPHETAMINE NEG (NEG)
[2020-08-09] MEDS ORDERED: ACETAMINOPHEN 500 MG TABLET PO ONE (08:00)
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
[2020-08-09 08:17] LABS: BACTERIA,URINE 0 /HPF (0-FEW); RBC,URINE 0 /HPF (0-2)
== END 2020-08-09 08:10 | disposition home or self-care (01) ==
LOC: ER 06:34
DX: S00.83XA Contusion of other part of head, initial encounter (principal); F10.229 Alcohol dependence with intoxication, unspecified; R55 Syncope and collapse; M54.2 Cervicalgia; F41.9 Anxiety disorder, unspecified; M19.90 Unspecified osteoarthritis, unspecified site; M79.7 Fibromyalgia; I10 Essential (primary) hypertension; Z90.710 Acquired absence of both cervix and uterus; Z90.89 Acquired absence of other organs; Z98.890 Other specified postprocedural states; Z88.8 Allergy status to other drugs, medicaments and biological substances; W18.39XA Other fall on same level, initial encounter; Y93.89 Activity, other specified; Y92.89 Other specified places as the place of occurrence of the external cause; Y99.0 Civilian activity done for income or pay
CPT/HCPCS: 36415; 70450; 70486; 72125; 80053; 80307; 80329; 81001; 85025; 87086; 99285; G0480